=== PATIENT | female | born 1945 | race Caucasian/White ===

== ENCOUNTER 2016-09-22 12:48 | Inpatient (IN) | payer MEDICARE, BC ==
[~2016-09-22] VITALS: Ht 157.5 cm; Wt 85.9 kg
[~2016-09-22 12:48] MED LIST: ALBU8.5H3 IH; ATOR20TA PO; CALC1TAB PO; DESL5TAB PO; FLUT1DIS3 IH; MULT-496 PO; OMEP40CA5 PO; OXYB5TAB33 PO; PHEN37.599 PO; TIOT18CA IH; WARF6TAB PO
[2016-09-22] MEDS ORDERED: ALBUTEROL SULFATE 2.5 MG/3 ML NEBU. ONE (12:58)
[2016-09-22] MEDS ORDERED: IPRATRPIUM/ALBUTEROL 0.5/2.5MG 3 ML NEBU. ONE (13:07)
[2016-09-22] MEDS ORDERED: IPRATRPIUM/ALBUTEROL 0.5/2.5MG 3 ML NEBU. NEB ONE (13:15)
[2016-09-22 13:42] LABS: BASO # 0.1 x10^3/uL (0.0-0.2); BASO % 1 % (0-3); EOS # 0.1 x10^3/uL (0.0-0.7); EOS % 2 % (0-3); HEMATOCRIT 41.9 % (36.0-47.0); HEMOGLOBIN 13.4 g/dL (12.0-15.5); LYMPH # 1.2 x10^3/uL (1.0-4.8); LYMPH % 14 % (24-48); MEAN CORPUSCULAR HEMOGLOBIN 27 pg (25-35); MEAN CORPUSCULAR HGB CONC 32 g/dL (31-37); MEAN CORPUSCULAR VOLUME 84 fL (79-100); MONO # 0.6 x10^3/uL (0.0-1.1); MONO % 7 % (0-9); NEUT # 6.7 x10^3uL (1.8-7.7); NEUT % 76 % (31-73); PLATELET COUNT 248 x10^3/uL (140-400); RED BLOOD COUNT 5.01 x10^6/uL (3.50-5.40); RED CELL DISTRIBUTION WIDTH 17.3 % (11.5-14.5); WHITE BLOOD COUNT 8.8 x10^3/uL (4.0-11.0)
--- NOTE | 2016-09-22 13:54 | EKG ---
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
[2016-09-22 13:59] LABS: ALBUMIN 3.5 g/dL (3.4-5.0); ALBUMIN/GLOBULIN RATIO 0.8 (1.0-1.7); CALCIUM 8.7 mg/dL (8.5-10.1); GFR 54.8; POTASSIUM 3.7 mmol/L (3.5-5.1); TOTAL BILIRUBIN 0.5 mg/dL (0.2-1.0); TOTAL PROTEIN 7.8 g/dL (6.4-8.2)
[2016-09-22 14:04] LABS: INFLUENZA A PATIENT NEGATIVE (NEGATIVE); INFLUENZA B PATIENT NEGATIVE (NEGATIVE)
[2016-09-22] MEDS ORDERED: IOHEXOL 300 MG/ML 75 ML VIAL. IV ONE (14:30)
--- NOTE | 2016-09-22 14:58 | RAD ---
CTA of the chest with contrast, 09/22/2016: History: Shortness of breath, lung cancer Multidetector CT imaging was performed following an IV bolus injection of iodinated contrast material. Multiplanar reconstructions were produced including coronal MIP images. The central pulmonary arteries are well opacified and no filling defects are seen to suggest pulmonary emboli. There is moderate calcific plaquing of the thoracic aorta without evidence of aneurysm. Moderate scattered coronary artery calcifications are present. Multiple small mediastinal lymph nodes are seen without evidence of pathologic enlargement. The 3 cm mass seen in the left lower lobe on the previous exam has decreased in size currently measuring 2.5 cm in greatest diameter. There are several radiopacities within and adjacent to this density suggesting calcifications and/or fiducial markers. There is an 11 mm subpleural nodule in the medial aspect of the left lower lobe which appears to be unchanged. Several other tiny left lower lobe nodules also appear to be unchanged. There are several minimal groundglass type opacities in the left lower lobe are new. There are several patchy groundglass opacities in the right lung which appear to be unchanged. The largest of these lies in the right upper lobe and measures 2 cm. There is no evidence of pleural fluid. There appears to be hepatic steatosis. The adrenal glands are unremarkable. IMPRESSION: 1. No CT evidence of central pulmonary emboli. 2. Decrease in size of the left lower lobe pulmonary mass apparently representing a favorable response to therapy in this patient with a given history of lung cancer. 3. Several additional smaller peripheral nodules in the left lower lobe are unchanged. 4. New minimal patchy groundglass opacities in the left lower lobe. 5. Unchanged right upper lobe patchy groundglass opacities. 6. Coronary artery disease. 7. Hepatic steatosis PQRS Compliance Statement: One or more of the following individualized dose reduction techniques were utilized for this examination: 1. Automated exposure control 2. Adjustment of the mA and/or kV according to patient size 3. Use of iterative reconstruction technique
[2016-09-22] MEDS ORDERED: ALBUTEROL SULFATE 2.5 MG/3 ML NEBU. CONT NEB ONE (15:00)
[2016-09-22] MEDS ORDERED: LEVOFLOXACIN PER PHARMACY MC PRN (15:15)
[2016-09-22] MEDS ORDERED: VANCOMYCIN PER PHARMACY MC PRN (15:15)
[2016-09-22] MEDS ORDERED: methylPREDNISolone SOD SUCC PF 125 MG/2 ML VIAL. IV ONE (15:30)
[2016-09-22] MEDS ORDERED: VANCOMYCIN 2 GM in IV NORMAL SALINE 500ML 500 ML IV ONE (16:00)
[2016-09-22 17:23] VITALS: BP 116/59
--- NOTE | 2016-09-22 17:44 | ED.ADGEN ---
Past History Past Medical History: Cancer, COPD, Diabetes, GERD, High Cholesterol, Stroke Past Surgical History: Hysterectomy, Other Alcohol Use: None Drug Use: None Adult General Chief Complaint Chief Complaint Cough, shortness of breath HPI HPI Patient is a 71 year old female who presents with shortness of breath, cough, runny nose. It started as an upper respiratory infection but then she had progressive shortness of breath over the last few days. Symptoms started on Sunday, no known fevers. Patient has a history of lung cancer, treated with radiation therapy 3 months ago. She does not wear home oxygen. Upon arrival she had sats in the 70s. Patient is not currently on steroids or antibiotics. She denies any chest pain except with coughing. sHe is chronically on Coumadin for previous stroke that occurred during surgery. Review of Systems Review of Systems Constitutional: Denies fever or chills [] Eyes: Denies change in visual acuity, redness, or eye pain [] HENT: Denies sore throat [] Respiratory: Per history of present illness Cardiovascular: Denies chest pain GI: Denies abdominal pain, nausea, vomiting, bloody stools or diarrhea [] : Denies dysuria or hematuria [] Musculoskeletal: Denies back pain or joint pain [] Integument: Denies rash or skin lesions [] Neurologic: Denies headache, focal weakness or sensory changes [] Current Medications Current Medications Current Medications Medications (Trade) Dose Ordered Sig/Svitlana Start Time Stop Time Status Last Admin Dose Admin Albuterol Sulfate (Ventolin) 10 mg 1X ONCE 09/22/16 15:00 09/22/16 15:01 DC 09/22/16 14:50 10 MG Albuterol/ Ipratropium (Duoneb) 3 ml 1X ONCE 09/22/16 13:15 09/22/16 13:16 DC 09/22/16 13:09 3 ML Iohexol (Omnipaque 300 Mg/ml) 75 ml 1X ONCE 09/22/16 14:30 09/22/16 14:32 DC 09/22/16 14:29 75 ML Allergies Allergies Allergies Coded Allergies Type Severity Reaction Last Updated Verified Penicillins Allergy Unknown 10/06/14 Yes Sulfa (Sulfonamide Antibiotics) Allergy Unknown 10/06/14 Yes cefdinir Allergy Unknown 10/06/14 Yes Physical Exam Physical Exam Constitutional: Well developed, well nourished, moderate respiratory distress HENT: Normocephalic, atraumatic, bilateral external ears normal, oropharynx moist, no oral exudates, nose normal. [] Eyes: PERRLA, EOMI, conjunctiva normal, no discharge. [] Neck: Normal range of motion, no tenderness, supple, no stridor. [] Cardiovascular:Heart rate regular rhythm Lungs & Thorax: Poor air movement diffusely expiratory wheeze noted, no appreciable crackles Abdomen: Soft, nontender, nondistended Skin: Warm, dry, no erythema, no rash. [] Back: No tenderness, no CVA tenderness. [] Extremities: No tenderness, no cyanosis, no clubbing, ROM intact, trace bilateral lower extremity edema, negative Homans Neurologic: Alert and oriented X 3, normal motor function, normal sensory function, no focal deficits noted. [] Psychologic: Affect normal, judgement normal, mood normal. [] Current Patient Data Vital Signs Vital Signs Date Time Temp Pulse Resp B/P Pulse Ox O2 Delivery O2 Flow Rate FiO2 09/22/16 14:55 89 Nasal Cannula 2.0 09/22/16 14:45 92 22 143/71 09/22/16 12:49 99.8 Lab Results Laboratory Tests Test 09/22/16 13:17 09/22/16 13:29 White Blood Count 8.8x10^3/uL (4.0-11.0) Red Blood Count 5.01x10^6/uL (3.50-5.40) Hemoglobin 13.4g/dL (12.0-15.5) Hematocrit 41.9% (36.0-47.0) Mean Corpuscular Volume 84fL (79-100) Mean Corpuscular Hemoglobin 27pg (25-35) Mean Corpuscular Hemoglobin Concent 32g/dL (31-37) Red Cell Distribution Width 17.3% (11.5-14.5) H Platelet Count 248x10^3/uL (140-400) Neutrophils (%) (Auto) 76% (31-73) H Lymphocytes (%) (Auto) 14% (24-48) L Monocytes (%) (Auto) 7% (0-9) Eosinophils (%) (Auto) 2% (0-3) Basophils (%) (Auto) 1% (0-3) Neutrophils # (Auto) 6.7x10^3uL (1.8-7.7) Lymphocytes # (Auto) 1.2x10^3/uL (1.0-4.8) Monocytes # (Auto) 0.6x10^3/uL (0.0-1.1) Eosinophils # (Auto) 0.1x10^3/uL (0.0-0.7) Basophils # (Auto) 0.1x10^3/uL (0.0-0.2) Prothrombin Time 11.6SEC (9.4-11.4) H Prothrombin Time INR 1.1 (0.9-1.1) PTT 25SEC (23-33) Sodium Level 139mmol/L (136-145) Potassium Level 3.7mmol/L (3.5-5.1) Chloride Level 102mmol/L (98-107) Carbon Dioxide Level 30mmol/L (21-32) Anion Gap 7 (6-14) Blood Urea Nitrogen 21mg/dL (7-20) H Creatinine 1.0mg/dL (0.6-1.0) Estimated GFR (Cockcroft-Gault) 54.8 BUN/Creatinine Ratio 21 (6-20) H Glucose Level 137mg/dL (70-99) H Lactic Acid Level 1.2mmol/L (0.4-2.0) Calcium Level 8.7mg/dL (8.5-10.1) Magnesium Level 2.0mg/dL (1.8-2.4) Total Bilirubin 0.5mg/dL (0.2-1.0) Aspartate Amino Transferase (AST) 19U/L (15-37) Alanine Aminotransferase (ALT) 26U/L (14-59) Alkaline Phosphatase 52U/L (46-116) Creatine Kinase 145U/L (26-192) Creatine Kinase MB (Mass) 1.6ng/mL (0.0-3.6) Creatine Kinase MB Relative Index 1.1% (0-4) Troponin I Quantitative < 0.017ng/mL (0-0.055) SU-Cbf-L-Type Natriuretic Peptide 932pg/mL (0-124) H Total Protein 7.8g/dL (6.4-8.2) Albumin 3.5g/dL (3.4-5.0) Albumin/Globulin Ratio 0.8 (1.0-1.7) L Influenza Type A (Rapid) Negative (NEGATIVE) Influenza Type B (Rapid) Negative (NEGATIVE) EKG EKG Reviewed by me [] Radiology/Procedures Radiology/Procedures Radiographs reviewed by me [] Course & Med Decision Making Course & Med Decision Making Pertinent Labs and Imaging studies reviewed. (See chart for details) Chest x-ray performed, patient given DuoNeb and albuterol breathing treatments. Slight improvement but she remains tachypneic. CT angiography ordered, patient given IV Solu-Medrol. There is signs of possible new infection, along with cough , recent multiple hospital visits, patient was treated with aztreonam, make mycin and Levaquin. Dr. Breaux accepted this patient. She was placed on BiPAP here in the ED. Final Impression Final Impression Acute respiratory failure COPD with excaerbation Problems: Dragon Disclaimer Dragon Disclaimer This electronic medical record was generated, in whole or in part, using a voice recognition dictation system. MATTIE DEL VALLE MD Sep 22, 2016 17:44
[2016-09-22] MEDS: AZTREONAM 2 GM in IV NORMAL SALINE 100ML 100 ML IV SCH (18:58)
[2016-09-22] MEDS ORDERED: IV NORMAL SALINE 100ML 100 ML ONE (19:47)
[2016-09-22 19:54] VITALS: BP 108/62
[2016-09-22] MEDS ORDERED: SIMV40TA3 PO (20:18)
[2016-09-22] MEDS ORDERED: ESCI20TA PO (20:19)
[2016-09-22] MEDS ORDERED: PIOG30TA20 PO (20:20)
[2016-09-22] MEDS ORDERED: FLUT1DIS5 IH (20:20)
[2016-09-22] MEDS ORDERED: AZIT250T PO (20:20)
[2016-09-22] MEDS ORDERED: CYAN10005 PO (20:21)
[2016-09-22] MEDS ORDERED: ALBUTEROL SULFATE 8GM INHALER. IH SCH (20:30)
[2016-09-22] MEDS ORDERED: ALBUTEROL SULFATE 2.5 MG/3 ML NEBU. NEB PRN (20:45)
[2016-09-22] MEDS ORDERED: NON FORMULARY ITEM (Fluticasone/Salmeterol (Advair 500-50 Diskus) 1 EACH) IH SCH (21:00)
[2016-09-22] MEDS: SIMVASTATIN 40 MG TABLET. PO SCH (21:04)
[2016-09-22] MEDS: ESCITALOPRAM 20 MG TABLET. PO SCH (21:04)
[2016-09-22] MEDS: BUDESONIDE 0.5 MG/2 ML NEBU NEB SCH (21:16)
[2016-09-22] MEDS: ALBUTEROL SULFATE 2.5 MG/3 ML NEBU. NEB SCH (21:16)
[2016-09-23] MEDS: AZTREONAM 2 GM in IV NORMAL SALINE 100ML 100 ML IV SCH ×5 (00:10→23:50)
[2016-09-23 05:08] VITALS: BP 106/61
[2016-09-23] MEDS: IPRATRPIUM/ALBUTEROL 0.5/2.5MG 3 ML NEBU. NEB SCH ×5 (05:32→20:39)
[2016-09-23] MEDS: ALBUTEROL SULFATE 2.5 MG/3 ML NEBU. NEB SCH ×4 (08:00→19:46)
[2016-09-23] MEDS: PIOGLITAZONE 15 MG TABLET. PO SCH (08:35)
[2016-09-23] MEDS: CYANOCOBALAMIN (VITAMIN B-12) 1,000 MCG TABLET. PO SCH (08:35)
[2016-09-23] MEDS: PANTOPRAZOLE 40 MG TABLET. PO SCH (08:36)
[2016-09-23] MEDS ORDERED: WARFARIN 6 MG TABLET. PO SCH ×2 (09:00→16:00)
[2016-09-23] MEDS ORDERED: NON FORMULARY ITEM (Tiotropium Bromide (Spiriva) 1 CAP) IH SCH (09:00)
[2016-09-23] MEDS: BUDESONIDE 0.5 MG/2 ML NEBU NEB SCH ×3 (11:25→20:39)
[2016-09-23 11:37] VITALS: BP 137/80
[2016-09-23] MEDS ORDERED: DEXTROSE 50% 25 GM / 50ML DISP.SYRIN. IV PRN (15:30)
[2016-09-23] MEDS ORDERED: methylPREDNISolone SOD SUCC PF 125 MG/2 ML VIAL. IV ONE (15:45)
[2016-09-23 15:56] VITALS: BP 141/63
--- NOTE | 2016-09-23 15:57 | HP ---
ADMIT DATE: 09/23/2016 HISTORY OF PRESENT ILLNESS: The patient is a 71-year-old female patient with a past medical history significant for lung cancer, treated with CyberKnife last year at [facility] and followed by Dr. Rubio, her housecleaner at [facility], who apparently came to the Emergency Room yesterday complaining of shortness of breath, cough with runny nose. It started upper respiratory tract infection; however, she had progressive shortness of breath over the last few days. Her symptoms started on Sunday and had no fever. She apparently is known to have recurrence of her left lower lobe lung cancer, treated recently about 3 months ago. She is not on any oxygen at home. When arrival to the Emergency Room, her oxygen saturation was only 70% on room air. She was not on any steroids or antibiotics. By the time she arrived, she denied any chest pain, fever, chills or rigor. She was extensively evaluated in the Emergency Room as she was markedly hypoxic and very short of breath. She did have CT angio of the chest, which showed that she no CT evidence of central pulmonary emboli, decrease in size of the left lower lobe pulmonary mass, apparently representing favorable response to therapy in this patient with a given history of lung cancer. She has several additional smaller peripheral nodules in the left lower lobe are unchanged. New or minimal patchy ground glass opacity in the left lower lobe, unchanged right upper lobe patchy ground glass opacities. She has also hepatic steatosis and coronary artery calcification. She was in fact admitted and was started on IV antibiotic in the form of vancomycin, aztreonam as well as levofloxacin and was continued on all her medications. PAST MEDICAL HISTORY: Significant for chronic obstructive pulmonary disease, lung cancer diagnosed 10 years ago, treated with wedge resection, apparently the lung cancer has recurred and was treated with CyberKnife. She is known to have type 2 diabetes mellitus, hypertension and hyperlipidemia. 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 PAST SURGICAL HISTORY: Significant for tonsillectomy, bilateral cataract extraction, total abdominal hysterectomy and bilateral salpingo-oophorectomy. She has wedge resection in the left lower lobe. ALLERGIES: She is allergic to SULFA, PENICILLIN and CEFDINIR. MEDICATIONS: She is currently on the following medications: She is on albuterol sulfate for ProAir 2 puffs every 4 hours as needed, cyanocobalamin for vitamin B12 1000 mcg once a day, escitalopram oxalate 20 mg once a day, Advair Diskus 500/50 one inhalation twice a day, omeprazole 40 mg once a day, pioglitazone 30 mg once a day, simvastatin 40 mg at bedtime, tiotropium bromide for Spiriva 1 inhalation once a day and warfarin for Coumadin 6 mg once a day. FAMILY HISTORY: She has one sister with younger and has cerebral aneurysm. Father at age of 63, bilateral lung cancer. He is known to be a smoker. Mother is still alive at age 93 and currently lives in assisted living facility. SOCIAL HISTORY: She is , has 2 daughters. Quit smoking about 20 years ago. She smoked for years, does not drink alcohol or use any recreational drugs. 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 REVIEW OF SYSTEMS: The patient had bilateral cataract extractions, but denied any glaucoma or macular degeneration. Denied any earache, tinnitus or sensorineural deafness. Denied any nosebleeds, stuffy nose or postnasal drip. Denied any sore throat, sore tongue, toothache, hoarseness of voice or difficulty swallowing. Denied any nausea, vomiting, but did complain of diarrhea. Denied any hematemesis, melena or hematochezia. Denied any dysuria, frequency or hematuria. Denied any chest pain, but did complain of shortness of breath, cough with mostly scanty whitish sputum. Denied any chills, rigors or fever. Denied any dizziness, lightheadedness or vertigo. PHYSICAL EXAMINATION: GENERAL: On arrival to the Emergency Room, she was clearly tachypneic. VITAL SIGNS: Her heart rate was 90, blood pressure was 143/71, her temperature was 99.8, respiratory rate was 28 and oxygen saturation was only 79% on 2 liters of oxygen by nasal cannula. HEAD, EYES, EARS, NOSE AND THROAT: Showed normocephalic, atraumatic. NECK: Supple. HEART: Showed normal first and second heart sounds with no gallop, rub or murmur. CHEST: Showed central trachea, equally reduced expansion, reduced air entry, vesicular sounds with bilateral scattered rhonchi. No crepitation. ABDOMEN: Distended, soft, nontender: NEUROLOGIC: She is awake, alert, responding appropriately. Cranial nerves intact. EXTREMITIES: She moves extremities without difficulty. She ambulates without assistance or assistive devices. LABORATORY DATA: On arrival in the Emergency Room, she had lab work done, which showed a serum sodium 139, potassium 3.7, chloride 102, bicarbonate 30, anion gap of 7, BUN 21, creatinine 1, estimated GFR was 55 mL per minute. Her glucose 137, calcium was 8.7, magnesium 2. Total bilirubin, AST, ALT, alkaline phosphatase were normal. Her beta natriuretic peptide was 932. Total protein was 7.8, albumin 3.5. Her white cell count was 8800, hemoglobin 13.4, hematocrit 41.9, MCV 84 and platelet count 248,000. Her prothrombin time was 11.6, INR 1.1, aPTT was 24. Serology was negative for influenza A and B. ASSESSMENT AND PLAN: In the Emergency Room, she underwent CT angio of the chest, which showed that she has no evidence of central pulmonary emboli, decrease in size of the lower lobe pulmonary mass, apparently representing a favorable response to therapy. She has bilateral ground glass opacity in the left lower lobe as well as the right upper lobe. She was admitted and was treated with COPD exacerbation and what seemed to be healthcare-associated pneumonia. She was started on vancomycin, aztreonam and levofloxacin. We will follow her labs closely and decide on further management accordingly. NOVA CULVER MD DR: HEMAL/martha JOB#: [id number] / [id number]
[2016-09-23] MEDS ORDERED: VANCOMYCIN 1.25 GM in IV NORMAL SALINE 250ML 250 ML IV SCH (16:00)
[2016-09-23] MEDS: WARFARIN 10 MG TABLET. PO SCH (17:15)
[2016-09-23] MEDS: INSULIN ASPART 300 UNITS/3 ML INSULN.PEN SQ SCH (17:19)
--- NOTE | 2016-09-23 18:38 | ACF ---
Admission Criteria Forms COPD Clinical Indications for Admission to Inpatient Care (Place 'X' for any and all applicable criteria): Admission is indicated for ANY ONE of the following (1)(2)(3): [x]I. Acute exacerbation by high-risk comorbidity (e.g., pneumonia, dysrhythmia, heart failure, pleural effusion, pneumothorax) or severe underlying COPD (e.g., steroid dependent) [ ]II. Inpatient admission required rather than observation care (see Chronic Obstructive Pulmonary Disease: Observation Care) because of ANY ONE of the following: [ ]a) New or pre-existing signs or symptoms of COPD (eg, dyspnea or Tachypnea at rest or with minimal activity) that persist despite outpatient and observation care treatment [ ]b) New-onset hypoxemia (room air SaO2 less than 90%, PO2 less than 60 mm Hg (8.0 kPa)) that persists despite outpatient and observation care treatment [ ]c) Worsening of pre-existing hypoxemia (eg, new or increased requirement for supplemental oxygen to maintain oxygenation at baseline level) that persists despite outpatient and observation care treatment, with oxygen treatment needs performable only in acute inpatient setting [ ]d) Hypercarbia (PCO2 greater than 40 mm Hg (5.3 kPa))-induced respiratory acidosis (pH less than 7.35) that persists despite outpatient and observation care treatment [ ]e) Supplemental oxygen or respiratory treatments for over 24 hours that are performable only in acute inpatient setting [ ]f) Chest tube placement with active evacuation (e.g., suction, drainage) (5) [ ]g) Other condition, treatment or monitoring requiring inpatient admission [ ]III. Planned invasive surgical or diagnostic procedures requiring acute- care hospitalization [ ]IV. Acute respiratory failure (e.g., uncompensated hypercarbia, severe hypoxemia) [ ]V. Severe comorbid condition (e.g., severe steroid myopathy, acute vertebral fracture) that has acutely worsened pulmonary function [ ]. Confusion state, lethargy, obtundation, stupor or coma Extended stay beyond goal length of stay may be needed for (31)(32): [ ]a ) Respiratory Failure. [ ]b) Severe or persisting hypoxemia or hypercarbia [ ]c) Severe or persistent dyspnea [ ]d) Comorbidities (e.g. chronic heart failure, atrial fibrillation with rapid response, pneumonia) [ ]e) Malnutrition The original [facility] content created by [employer] has been revised. The portions of the content which have been revised are identified through the use of italic text or in bold, and [facility] has neither reviewed nor approved the modified material. All other unmodified content is copyright [facility]. Please see references footnoted in the original [facility] edition 2016 Admission Criteria Met?: Yes GAVINO LARRY Sep 23, 2016 18:38
[2016-09-23 19:08] VITALS: BP 131/63
[2016-09-23] MEDS: MELATONIN 3 MG TABLET PO PRN (21:27)
[2016-09-23] MEDS: SIMVASTATIN 40 MG TABLET. PO SCH (21:27)
[2016-09-23] MEDS: MONTELUKAST 10 MG TABLET. PO SCH (21:27)
[2016-09-23] MEDS: ESCITALOPRAM 20 MG TABLET. PO SCH (21:27)
[2016-09-23] MEDS: methylPREDNISolone SOD SUCC PF 40 MG/ML VIAL. IV SCH (21:28)
[2016-09-23] MEDS: GUAIFENESIN ER 600 MG TABLET.ER PO SCH (21:28)
[2016-09-23 22:11] LABS: C DIFF BY PCR Negative (Negative)
[2016-09-24 00:05] VITALS: BP 127/78
--- NOTE | 2016-09-24 01:33 | PN ---
DATE: 09/23/2016 SUBJECTIVE: The patient was admitted yesterday with what seemed to be a healthcare-associated pneumonia as well as COPD exacerbation. She was started on IV antibiotic. Continued with all other medication and she was started on oxygen as when she came her oxygen saturation was only 70%. Initially, she was on 2 liters of oxygen that was increased to 4 liters to maintain her oxygen saturation more than 90%. PHYSICAL EXAMINATION: GENERAL: When I saw her this afternoon, she was resting slightly propped up in bed, in no apparent respiratory distress. She was slightly pale, but no jaundice, cyanosis, or thyromegaly. No jugular venous distension. No limb edema. VITAL SIGNS: Her heart rate was 86, blood pressure was 137/80, temperature was 97.8, respiratory rate was 16 and oxygen saturation was 94% on 4 liters of oxygen by nasal cannula. HEAD, EYES, EARS, NOSE AND THROAT: Showed normocephalic, atraumatic. NECK: Supple. HEART: Showed normal first and second heart sounds with no gallop, rub or murmur. CHEST: Shows central trachea, equally reduced expansion, reduced air entry, vesicular sounds. Has scattered bronchi diffusely, but no crepitation. ABDOMEN: Distended, soft, nontender. NEUROLOGIC: She was awake, alert, responding appropriately. Cranial nerves intact. She moves extremities without difficulty. We attempted to check her oxygen as she expressed a desire to go home and without oxygen her oxygen saturation on walking only few feet dropped down to below 60. I convinced the patient that it is in her best interest to stay and we will continue with IV antibiotics. I will add steroids and Singulair and perhaps some Mucinex. We will repeat all her lab works and hopefully on Sunday we will do 6-minute walk and if she qualifies, we will arrange for her to have home oxygen. NOVA CULVER MD DR: HEMAL/martha JOB#: [id number] / [id number]
[2016-09-24] MEDS: methylPREDNISolone SOD SUCC PF 40 MG/ML VIAL. IV SCH ×3 (05:12→20:25)
[2016-09-24] MEDS: AZTREONAM 2 GM in IV NORMAL SALINE 100ML 100 ML IV SCH ×4 (05:12→23:45)
[2016-09-24] MEDS: IPRATRPIUM/ALBUTEROL 0.5/2.5MG 3 ML NEBU. NEB SCH ×4 (05:14→20:21)
[2016-09-24 06:16] LABS: BASO % 0 % (0-3); EOS % 0 % (0-3); HEMATOCRIT 38.5 % (36.0-47.0); HEMOGLOBIN 11.9 g/dL (12.0-15.5); LYMPH # 0.4 x10^3/uL (1.0-4.8); LYMPH % 4 % (24-48); MEAN CORPUSCULAR HEMOGLOBIN 26 pg (25-35); MEAN CORPUSCULAR HGB CONC 31 g/dL (31-37); MEAN CORPUSCULAR VOLUME 84 fL (79-100); MONO # 0.2 x10^3/uL (0.0-1.1); MONO % 2 % (0-9); NEUT # 10.7 x10^3uL (1.8-7.7); NEUT % 94 % (31-73); PLATELET COUNT 264 x10^3/uL (140-400); RED BLOOD COUNT 4.56 x10^6/uL (3.50-5.40); RED CELL DISTRIBUTION WIDTH 17.3 % (11.5-14.5); WHITE BLOOD COUNT 11.4 x10^3/uL (4.0-11.0)
[2016-09-24 06:20] VITALS: BP 134/75
[2016-09-24 06:29] LABS: ALBUMIN 2.9 g/dL (3.4-5.0); ALBUMIN/GLOBULIN RATIO 0.7 (1.0-1.7); CALCIUM 8.9 mg/dL (8.5-10.1); CREATININE 1.1 mg/dL (0.6-1.0); GFR 49.1; TOTAL BILIRUBIN 0.3 mg/dL (0.2-1.0)
[2016-09-24 06:40] LABS: % BANDS 1 % (0-9); % LYMPHS 6 % (24-48); % SEGS 93 % (35-66); PLT ESTIMATE ADEQUATE (ADEQUATE)
[2016-09-24 06:41] LABS: OVALOCYTES OCC
[2016-09-24 06:42] LABS: POLYCHROMASIA MOD
[2016-09-24 06:45] LABS: ANISOCYTOSIS SLIGHT
[2016-09-24] MEDS: PANTOPRAZOLE 40 MG TABLET. PO SCH (07:40)
[2016-09-24] MEDS: INSULIN ASPART 300 UNITS/3 ML INSULN.PEN SQ SCH ×4 (07:54→16:38)
[2016-09-24] MEDS: ALBUTEROL SULFATE 2.5 MG/3 ML NEBU. NEB SCH ×4 (08:00→20:00)
[2016-09-24] MEDS: GUAIFENESIN ER 600 MG TABLET.ER PO SCH ×2 (08:37→20:25)
[2016-09-24] MEDS: PIOGLITAZONE 15 MG TABLET. PO SCH (08:37)
[2016-09-24] MEDS: CYANOCOBALAMIN (VITAMIN B-12) 1,000 MCG TABLET. PO SCH (08:37)
[2016-09-24] MEDS: BUDESONIDE 0.5 MG/2 ML NEBU NEB SCH ×2 (11:04→20:22)
[2016-09-24 11:19] VITALS: BP 135/79
[2016-09-24] MEDS ORDERED: IV NORMAL SALINE 100ML 100 ML ONE (12:59)
[2016-09-24] MEDS: IV NORMAL SALINE 1,000ML 1,000 ML IV SCH (13:30)
[2016-09-24 15:52] VITALS: BP 126/61
[2016-09-24] MEDS: WARFARIN 10 MG TABLET. PO SCH (15:52)
[2016-09-24 19:41] VITALS: BP 158/73
[2016-09-24] MEDS: SIMVASTATIN 40 MG TABLET. PO SCH (20:25)
[2016-09-24] MEDS: ESCITALOPRAM 20 MG TABLET. PO SCH (20:25)
[2016-09-24] MEDS: MONTELUKAST 10 MG TABLET. PO SCH (20:25)
[2016-09-24] MEDS: MELATONIN 3 MG TABLET PO PRN (20:50)
[2016-09-24 22:47] VITALS: BP 147/70
--- NOTE | 2016-09-24 22:49 | PN ---
DATE: 09/24/2016 SUBJECTIVE: The patient is sitting comfortably in her chair stating that she is exhausted, but feeling much better than yesterday. She continued to be desaturated, given 2 liters of oxygen and she needs 3 liters at rest to maintain her oxygen more than 90. PHYSICAL EXAMINATION: GENERAL: When I examined her, she looked well and was clearly in no apparent respiratory distress, pale, but no jaundice, cyanosis, or thyromegaly. No jugular venous distention. No limb edema. VITAL SIGNS: Her heart rate was 78, blood pressure 135/79, temperature was 98.1, respiratory rate was 20, and oxygen saturation was 95% on 3 liters of oxygen. HEAD, EYES, EARS, NOSE AND THROAT: Showed normocephalic, atraumatic. NECK: Supple. HEART: Showed normal first and second heart sounds with no gallop, rub or murmur. CHEST: Clear to auscultation. No crepitation or rhonchi. ABDOMEN: Distended, soft, nontender. No guarding or rigidity. No organomegaly. Hernial orifices intact. Bowel sounds normal. NEUROLOGIC: She was awake, alert, responding appropriately. All her cranial nerves intact. She moves extremities without difficulty, although she desaturate very quickly on minimal exertion. Her intake over the last 24 hours was 1430, output was 240. LABORATORY DATA: As of this morning showed a white cell count of 11,400, hemoglobin 11.9, hematocrit 38, MCV was 84, and platelet count 264,000 with normal manual differential. Her serum sodium was 140, potassium 5, chloride 104, bicarbonate 27, anion gap of 9, BUN 30, creatinine 1.1, estimated GFR was 49 mL per minute. Her glucose was 263, calcium was 8.9. Total bilirubin, AST, ALT, alkaline phosphatase normal. Total protein was 7. Albumin was 2.9. Her prothrombin time and INR still subtherapeutic at 11.5 and INR 1.1. ASSESSMENT: 1. Acute hypoxic respiratory failure. 2. Chronic obstructive pulmonary disease exacerbation. 3. Healthcare-associated pneumonia. 4. Recurrence of left lower lobe lung cancer treated with a CyberKnife. 5. Other medical problems include type 2 diabetes, hypertension, and hyperlipidemia. She apparently had right-sided CVA with left-sided hemiplegia with minimal residual neurological deficits. PLAN: My plan is to continue with IV antibiotic and continue with Solu-Medrol and bronchodilator. Repeat her lab works tomorrow. She probably needs 6-minute walk tomorrow as she is scheduled to see her radiation oncologist and Dr. Rubio, the manager advanced at [facility]. NOVA CULVER MD DR: HEMAL/martha JOB#: [id number] / [id number]
[2016-09-25] MEDS: IV NORMAL SALINE 1,000ML 1,000 ML IV SCH (02:42)
[2016-09-25 05:12] VITALS: BP 145/86
[2016-09-25] MEDS: methylPREDNISolone SOD SUCC PF 40 MG/ML VIAL. IV SCH ×2 (05:54→21:26)
[2016-09-25] MEDS: AZTREONAM 2 GM in IV NORMAL SALINE 100ML 100 ML IV SCH (05:54)
[2016-09-25] MEDS: IPRATRPIUM/ALBUTEROL 0.5/2.5MG 3 ML NEBU. NEB SCH ×2 (05:59→19:58)
[2016-09-25 06:29] LABS: BASO % 0 % (0-3); EOS % 0 % (0-3); HEMATOCRIT 37.2 % (36.0-47.0); HEMOGLOBIN 11.6 g/dL (12.0-15.5); LYMPH # 0.3 x10^3/uL (1.0-4.8); LYMPH % 3 % (24-48); MEAN CORPUSCULAR HEMOGLOBIN 26 pg (25-35); MEAN CORPUSCULAR HGB CONC 31 g/dL (31-37); MEAN CORPUSCULAR VOLUME 85 fL (79-100); MONO # 0.3 x10^3/uL (0.0-1.1); MONO % 3 % (0-9); NEUT # 10.6 x10^3uL (1.8-7.7); NEUT % 94 % (31-73); PLATELET COUNT 283 x10^3/uL (140-400); RED BLOOD COUNT 4.39 x10^6/uL (3.50-5.40); RED CELL DISTRIBUTION WIDTH 17.1 % (11.5-14.5); WHITE BLOOD COUNT 11.3 x10^3/uL (4.0-11.0)
[2016-09-25 06:49] LABS: ALBUMIN 2.8 g/dL (3.4-5.0); ALBUMIN/GLOBULIN RATIO 0.7 (1.0-1.7); CALCIUM 8.8 mg/dL (8.5-10.1); GFR 54.8; POTASSIUM 4.7 mmol/L (3.5-5.1); TOTAL BILIRUBIN 0.2 mg/dL (0.2-1.0); TOTAL PROTEIN 6.7 g/dL (6.4-8.2)
[2016-09-25] MEDS: PANTOPRAZOLE 40 MG TABLET. PO SCH (07:39)
[2016-09-25] MEDS: INSULIN ASPART 300 UNITS/3 ML INSULN.PEN SQ SCH ×3 (07:41→17:31)
[2016-09-25] MEDS: GUAIFENESIN ER 600 MG TABLET.ER PO SCH ×2 (08:38→21:26)
[2016-09-25] MEDS: CYANOCOBALAMIN (VITAMIN B-12) 1,000 MCG TABLET. PO SCH (08:38)
[2016-09-25] MEDS: PIOGLITAZONE 15 MG TABLET. PO SCH (08:38)
[2016-09-25 11:33] VITALS: BP 146/79
[2016-09-25] MEDS: ALBUTEROL SULFATE 2.5 MG/3 ML NEBU. NEB SCH ×4 (12:00→20:00)
[2016-09-25] MEDS: BUDESONIDE 0.5 MG/2 ML NEBU NEB SCH ×2 (12:05→19:58)
[2016-09-25] MEDS ORDERED: WARFARIN 5 MG TABLET. PO ONE (16:00)
[2016-09-25 16:01] VITALS: BP 123/85
[2016-09-25] MEDS ORDERED: LEVOFLOXACIN 750 MG TABLET PO SCH (17:00)
[2016-09-25 20:02] VITALS: BP 136/62
--- NOTE | 2016-09-25 20:23 | PN ---
DATE: 09/25/2016 CURRENT PROBLEMS: 1. Acute hypoxic respiratory failure. 2. COPD exacerbation. 3. Healthcare-associated pneumonia. 4. Recurrence of left lower lobe cancer. 5. Type 2 diabetes. 6. Hypertension. 7. Hyperglycemia. 8. History of right-sided CVA. 9. Leukocytosis from steroids. 10. Hyperglycemia from steroids. 11. Mild protein malnutrition. 12. Chronic kidney disease, stage 2. 13. Chronic anticoagulation. SUBJECTIVE: A 71-year-old female admitted with acute hypoxic respiratory failure and pneumonia. She is doing much better. She is requiring oxygen and failed her oxygen test this morning, just by taking off her oxygen her sats dropped down to the 80s. She is not on oxygen at home, but will require that at least initially. She does have appointments with specialty physician this week to follow up on her lung cancer. I anticipate she will be able to go home probably tomorrow. OBJECTIVE: VITAL SIGNS: Blood pressure 146/79, pulse 79, respirations 22, pulse ox is 93% on 1.5 liters. GENERAL: She is resting comfortably at rest, able to sit up without assistance. Color is slightly pale. HEENT: Her eyes were clear. Nose was patent. Her tongue was moist. NECK: Supple. LUNGS: With crackles in the bases. CARDIOVASCULAR: Regular rhythm and rate. ABDOMEN: Soft, nontender. EXTREMITIES: Without edema. LABORATORY DATA: Reviewed. BUN is 29, creatinine 1.0. Glucoses are in the 200s to low 300s. She has an elevated ____. Her INR was 2.5 up from 1.1 with her Coumadin was increased from 6 to 10. We will defer to pharmacy for that. We will adjust her Coumadin accordingly. PLAN: Decrease steroids to switch her to p.o. Levaquin now. Arrangements are being made for home oxygen. MELISSA TIRADO DO DR: ANIYAH/martha JOB#: [id number] / [id number]
[2016-09-25] MEDS: MELATONIN 3 MG TABLET PO PRN (21:26)
[2016-09-25] MEDS: MONTELUKAST 10 MG TABLET. PO SCH (21:26)
[2016-09-25] MEDS: SIMVASTATIN 40 MG TABLET. PO SCH (21:26)
[2016-09-25] MEDS: ESCITALOPRAM 20 MG TABLET. PO SCH (21:26)
[2016-09-26 04:52] VITALS: BP 134/76
[2016-09-26] MEDS: IPRATRPIUM/ALBUTEROL 0.5/2.5MG 3 ML NEBU. NEB SCH ×2 (05:16→11:13)
[2016-09-26 07:46] LABS: BASO % 0 % (0-3); EOS % 0 % (0-3); HEMATOCRIT 38.4 % (36.0-47.0); HEMOGLOBIN 11.8 g/dL (12.0-15.5); LYMPH # 0.3 x10^3/uL (1.0-4.8); LYMPH % 3 % (24-48); MEAN CORPUSCULAR HEMOGLOBIN 26 pg (25-35); MEAN CORPUSCULAR HGB CONC 31 g/dL (31-37); MEAN CORPUSCULAR VOLUME 84 fL (79-100); MONO # 0.4 x10^3/uL (0.0-1.1); MONO % 4 % (0-9); NEUT # 10.3 x10^3uL (1.8-7.7); NEUT % 93 % (31-73); PLATELET COUNT 287 x10^3/uL (140-400); RED BLOOD COUNT 4.56 x10^6/uL (3.50-5.40); RED CELL DISTRIBUTION WIDTH 16.8 % (11.5-14.5)
[2016-09-26] MEDS: ALBUTEROL SULFATE 2.5 MG/3 ML NEBU. NEB SCH ×2 (08:00→12:00)
[2016-09-26 08:02] LABS: ALBUMIN 2.7 g/dL (3.4-5.0); ALBUMIN/GLOBULIN RATIO 0.7 (1.0-1.7); CALCIUM 8.6 mg/dL (8.5-10.1); CREATININE 0.9 mg/dL (0.6-1.0); GFR 61.9; POTASSIUM 4.2 mmol/L (3.5-5.1); TOTAL BILIRUBIN 0.2 mg/dL (0.2-1.0); TOTAL PROTEIN 6.5 g/dL (6.4-8.2)
[2016-09-26] MEDS: PANTOPRAZOLE 40 MG TABLET. PO SCH (08:02)
[2016-09-26] MEDS: INSULIN ASPART 300 UNITS/3 ML INSULN.PEN SQ SCH (08:06)
[2016-09-26] MEDS: PIOGLITAZONE 15 MG TABLET. PO SCH (08:41)
[2016-09-26] MEDS: methylPREDNISolone SOD SUCC PF 40 MG/ML VIAL. IV SCH (08:41)
[2016-09-26] MEDS: GUAIFENESIN ER 600 MG TABLET.ER PO SCH (08:41)
[2016-09-26] MEDS: CYANOCOBALAMIN (VITAMIN B-12) 1,000 MCG TABLET. PO SCH (08:41)
[2016-09-26] MEDS ORDERED: DOXY100C2 PO (10:03)
[2016-09-26] MEDS ORDERED: GUAI600T38 PO (10:03)
[2016-09-26] MEDS ORDERED: MONT10TA9 PO (10:03)
[2016-09-26] MEDS ORDERED: ALBU2.5V5 NEB (10:03)
[2016-09-26] MEDS ORDERED: PRED20TA PO (10:03)
[2016-09-26] MEDS: BUDESONIDE 0.5 MG/2 ML NEBU NEB SCH (11:13)
--- NOTE | 2016-09-26 12:33 | DS ---
DATE OF DISCHARGE: 09/26/2016 DISCHARGE DIAGNOSES: 1. Acute hypoxic respiratory failure. 2. Chronic obstructive pulmonary disease exacerbation. 3. Healthcare-associated pneumonia. 4. Recurrence of left lower lobe cancer. 5. Type 2 diabetes. 6. Hypertension. 7. Hyperglycemia secondary to steroids. 8. History of right-sided cerebrovascular accident. 9. Leukocytosis from steroids. 10. Mild protein malnutrition. 11. Chronic kidney disease, stage II. 12. Subtherapeutic then supratherapeutic INR. HOSPITAL COURSE: This is a 71-year-old female initially admitted by Dr. Merrill Leon for shortness of breath, cough, upper respiratory tract infection. She was found to be hypoxic with healthcare-associated pneumonia and was treated with steroids, breathing treatments and antibiotics. She improved steadily over the course of her hospitalization. Her INR was subtherapeutic and then supratherapeutic and her Coumadin will be adjusted accordingly. PHYSICAL EXAMINATION: VITAL SIGNS: On the day of discharge, blood pressure 134/76, pulse 93, temperature 97.9, pulse ox on 3 liters. GENERAL: Color is much better today. LUNGS: Clear in all wren. CARDIOVASCULAR: Regular rhythm and rate. EXTREMITIES: Without edema. LABORATORY DATA: Her INR today is 3.7. DISPOSITION: Home with home health. DISCHARGE INSTRUCTIONS: She will follow up with [facility] with SARAH BETH Wise. She will be on prednisone taper. She will go home on doxycycline and needs to establish care with another physician as Dr. Lynn is leaving. Typewritten instructions also given. TIME SPENT ON DISCHARGE: 20 minutes. MELISSA TIRADO DO DR: ANIYAH/martha JOB#: [id number] / [id number]
== END 2016-09-26 12:11 | disposition home or self-care (01) | DRG 193 ==
LOC: ER 12:48 → 1 SOUTH 15:13
PROVIDERS: ADMIT Internal Medicine; ATTEND Internal Medicine
PROC: 5A09357 Assistance with Respiratory Ventilation, Less than 24 Consecutive Hours, Continuous Positive Airway Pressure (ICD-10-PCS; principal; 2016-09-22)
DX: J18.9 Pneumonia, unspecified organism (principal); J96.01 Acute respiratory failure with hypoxia; J44.0 Chronic obstructive pulmonary disease with (acute) lower respiratory infection; E44.1 Mild protein-calorie malnutrition; J44.1 Chronic obstructive pulmonary disease with (acute) exacerbation; I69.354 Hemiplegia and hemiparesis following cerebral infarction affecting left non-dominant side; C34.90 Malignant neoplasm of unspecified part of unspecified bronchus or lung; E78.00 Pure hypercholesterolemia, unspecified; E78.5 Hyperlipidemia, unspecified; I12.9 Hypertensive chronic kidney disease with stage 1 through stage 4 chronic kidney disease, or unspecified chronic kidney disease; I25.10 Atherosclerotic heart disease of native coronary artery without angina pectoris; K21.9 Gastro-esophageal reflux disease without esophagitis; K76.0 Fatty (change of) liver, not elsewhere classified; N18.2 Chronic kidney disease, stage 2 (mild); E11.22 Type 2 diabetes mellitus with diabetic chronic kidney disease; E11.65 Type 2 diabetes mellitus with hyperglycemia; R79.1 Abnormal coagulation profile; Y95 Nosocomial condition; Z79.01 Long term (current) use of anticoagulants; Z80.1 Family history of malignant neoplasm of trachea, bronchus and lung; Z87.891 Personal history of nicotine dependence; Z90.710 Acquired absence of both cervix and uterus; Z92.3 Personal history of irradiation; Z98.41 Cataract extraction status, right eye; Z98.42 Cataract extraction status, left eye; Z90.722 Acquired absence of ovaries, bilateral; Z88.1 Allergy status to other antibiotic agents; Z88.0 Allergy status to penicillin; Z88.2 Allergy status to sulfonamides; Z68.34 Body mass index [BMI] 34.0-34.9, adult
CPT/HCPCS: 36415; 71275; 80053; 82553; 82947; 83605; 83735; 83880; 84484; 85007; 85027; 85610; 85730; 87324; 87804; 93005; 94640; 94660; J1815; J1956; J2920; J2930; J3370; J3490; J7040; J7050; J7613; J7620; J7626; Q9967; 99285-25; J7030

== ENCOUNTER 2019-07-04 17:08 | Inpatient (IN) | payer MEDICARE, BC ==
[~2019-07-04] VITALS: Ht 157.5 cm; Wt 86.3 kg
[~2019-07-04 17:08] MED LIST changes: +ALBU2.5V5 NEB; +ALBU2.5V8 IH; -ALBU8.5H3 IH; +AZIT250T PO; +CYAN-25 PO; +DOXY100C2 PO; +ESCITALOPRAM OX20 MG PO; +FLUT1DIS5 IH; +GUAI600T47 PO; +MONT10TA80 PO; +OMEP40CA45 PO; -OMEP40CA5 PO; +PIOG30TA41 PO; +PRED20TA PO; +SIMV40TA18 PO
[2019-07-04] MEDS ORDERED: LEXAPRO20 MG PO (17:24)
[2019-07-04] MEDS ORDERED: CARV25TA2 PO (17:24)
[2019-07-04] MEDS ORDERED: DESL5TAB PO (17:24)
[2019-07-04] MEDS ORDERED: LOSA25TA11 PO (17:24)
[2019-07-04] MEDS ORDERED: ELDE1CAP PO (17:24)
[2019-07-04] MEDS ORDERED: GARL100T PO (17:24)
[2019-07-04] MEDS ORDERED: ASPI-630 PO (17:24)
[2019-07-04 17:58] VITALS: BP 113/46
[2019-07-04] MEDS: oxyCODONE IR 5 MG TABLET PO PRN (18:09)
[2019-07-04] MEDS ORDERED: ALBUTEROL SULFATE 2.5 MG/3 ML NEBU. NEB PRN (20:00)
[2019-07-04] MEDS: IPRATRPIUM/ALBUTEROL 0.5/2.5MG 3 ML NEBU. NEB SCH (20:51)
[2019-07-04] MEDS: BUDESONIDE 0.5 MG/2 ML NEBU NEB SCH (20:51)
[2019-07-04] MEDS: CITALOPRAM 20 MG TABLET. PO SCH (20:57)
[2019-07-04] MEDS: SIMVASTATIN 40 MG TABLET. PO SCH (20:57)
[2019-07-04] MEDS ORDERED: NON FORMULARY ITEM (Fluticasone/Salmeterol (Advair 500-50 Diskus) 1 EACH) IH SCH (21:00)
[2019-07-05] MEDS: IPRATRPIUM/ALBUTEROL 0.5/2.5MG 3 ML NEBU. NEB SCH ×4 (04:43→20:39)
[2019-07-05 05:21] VITALS: BP 143/60
[2019-07-05 06:38] LABS: BASO % 0 % (0-3); EOS # 0.4 x10^3/uL (0.0-0.7); EOS % 10 % (0-3); HEMATOCRIT 25.2 % (36.0-47.0); HEMOGLOBIN 7.8 g/dL (12.0-15.5); LYMPH # 0.4 x10^3/uL (1.0-4.8); LYMPH % 10 % (24-48); MEAN CORPUSCULAR HEMOGLOBIN 27 pg (25-35); MEAN CORPUSCULAR HGB CONC 31 g/dL (31-37); MEAN CORPUSCULAR VOLUME 87 fL (79-100); MONO # 0.7 x10^3/uL (0.0-1.1); MONO % 16 % (0-9); NEUT # 2.6 x10^3uL (1.8-7.7); NEUT % 64 % (31-73); PLATELET COUNT 182 x10^3/uL (140-400)
[2019-07-05 06:52] LABS: ALBUMIN 2.4 g/dL (3.4-5.0); ALBUMIN/GLOBULIN RATIO 0.7 (1.0-1.7); CALCIUM 7.9 mg/dL (8.5-10.1); CREATININE 0.9 mg/dL (0.6-1.0); GFR 61.4; POTASSIUM 4.3 mmol/L (3.5-5.1); TOTAL BILIRUBIN 0.2 mg/dL (0.2-1.0); TOTAL PROTEIN 5.7 g/dL (6.4-8.2)
[2019-07-05] MEDS ORDERED: GARLIC 100 MG PO SCH (09:00)
[2019-07-05] MEDS ORDERED: ELDERBERRY FRUIT AND FLOWER PO SCH (09:00)
[2019-07-05] MEDS ORDERED: CETIRIZINE HCL 10 MG TABLET PO PRN (09:00)
[2019-07-05] MEDS ORDERED: NON FORMULARY ITEM (Tiotropium Bromide (Spiriva) 1 CAP) IH SCH (09:00)
[2019-07-05] MEDS: PIOGLITAZONE 15 MG TABLET. PO SCH (09:07)
[2019-07-05] MEDS: oxyCODONE IR 5 MG TABLET PO PRN ×2 (09:07→12:44)
[2019-07-05] MEDS: LOSARTAN 25 MG TABLET. PO SCH (09:07)
[2019-07-05] MEDS: ASPIRIN 81 MG TAB.CHEW PO SCH (09:07)
[2019-07-05] MEDS: PANTOPRAZOLE 40 MG TABLET. PO SCH (09:07)
[2019-07-05] MEDS: CARVEDILOL 12.5 MG TABLET PO SCH ×2 (09:08→17:00)
[2019-07-05] MEDS: CYANOCOBALAMIN (VITAMIN B-12) 1,000 MCG TABLET. PO SCH (09:08)
[2019-07-05] MEDS: BUDESONIDE 0.5 MG/2 ML NEBU NEB SCH ×2 (09:28→20:39)
[2019-07-05 18:10] VITALS: BP 99/38
[2019-07-05 19:50] VITALS: BP 116/41
[2019-07-05] MEDS: CITALOPRAM 20 MG TABLET. PO SCH (20:24)
[2019-07-05] MEDS: SIMVASTATIN 40 MG TABLET. PO SCH (20:24)
[2019-07-06] MEDS: IPRATRPIUM/ALBUTEROL 0.5/2.5MG 3 ML NEBU. NEB SCH ×2 (05:01→09:39)
[2019-07-06 06:14] VITALS: BP 151/47
[2019-07-06] MEDS: PIOGLITAZONE 15 MG TABLET. PO SCH (08:32)
[2019-07-06] MEDS: PANTOPRAZOLE 40 MG TABLET. PO SCH (08:32)
[2019-07-06] MEDS: LOSARTAN 25 MG TABLET. PO SCH (08:33)
[2019-07-06] MEDS: CARVEDILOL 12.5 MG TABLET PO SCH ×2 (08:33→17:54)
[2019-07-06] MEDS: CYANOCOBALAMIN (VITAMIN B-12) 1,000 MCG TABLET. PO SCH (08:33)
[2019-07-06] MEDS: ASPIRIN 81 MG TAB.CHEW PO SCH (08:34)
[2019-07-06] MEDS: BUDESONIDE 0.5 MG/2 ML NEBU NEB SCH (09:39)
[2019-07-06] MEDS: oxyCODONE IR 5 MG TABLET PO PRN ×2 (13:41→20:57)
[2019-07-06] MEDS ORDERED: WARFARIN 3 MG TABLET. PO ONE (16:00)
[2019-07-06 17:37] VITALS: BP 155/47
[2019-07-06] MEDS: ADVAIR INH SCH (20:56)
[2019-07-06] MEDS: CITALOPRAM 20 MG TABLET. PO SCH (20:56)
[2019-07-06] MEDS: SIMVASTATIN 40 MG TABLET. PO SCH (20:56)
[2019-07-07] MEDS: oxyCODONE IR 5 MG TABLET PO PRN ×2 (04:02→17:44)
[2019-07-07 05:13] VITALS: BP 132/50
[2019-07-07] MEDS: CARVEDILOL 12.5 MG TABLET PO SCH ×2 (08:00→17:04)
[2019-07-07] MEDS: LOSARTAN 25 MG TABLET. PO SCH (08:53)
[2019-07-07] MEDS: ASPIRIN 81 MG TAB.CHEW PO SCH (08:53)
[2019-07-07] MEDS: PIOGLITAZONE 15 MG TABLET. PO SCH (08:53)
[2019-07-07] MEDS: ADVAIR INH SCH ×2 (08:54→21:16)
[2019-07-07] MEDS: SPIRIVA 18 MCG INH SCH (08:54)
[2019-07-07] MEDS: CYANOCOBALAMIN (VITAMIN B-12) 1,000 MCG TABLET. PO SCH (08:54)
[2019-07-07] MEDS: PANTOPRAZOLE 40 MG TABLET. PO SCH (08:54)
[2019-07-07 11:00] VITALS: BP 118/40
[2019-07-07 11:48] VITALS: BP 126/38
[2019-07-07 11:49] VITALS: BP 142/55
--- NOTE | 2019-07-07 13:52 | HP ---
ADMIT DATE: 07/07/2019 HISTORY OF PRESENT ILLNESS: The patient is a 74-year-old female patient who was admitted on 07/01/2019 to [facility] on account of worsening pain in her right hip for the last 5 years, bothering her much more so often than the left probably. This pain had started when she fell out of bed about 4 years ago, more recent traumatic episodes of fall over her oxygen tubing about ____ ago and each time increased pain in the right hip, which is not very severe and getting worse over the past several months. She was seen in consultation by the orthopedic surgeon, was admitted to [facility] and underwent right total hip arthroplasty successfully and was transferred to our hospital swing bed to continue with pain management, DVT prophylaxis as well as to start the process of rehabilitation. PAST MEDICAL HISTORY: Significant for cerebrovascular accident, lung cancer. bronchial asthma, chronic back pain, dysphagia, gastroesophageal reflux disease, incontinence, hypertension, stress urinary incontinence, chronic sinusitis and history of DVT. PAST SURGICAL HISTORY: Significant for thoracotomy, partial lung removal due to cancer in 2005. FAMILY HISTORY: Her mother is still alive. Her father from lung cancer. SOCIAL HISTORY: She apparently quit smoking after about 30 years history of smoking, denied any drug or alcohol consumption. ALLERGIES: She is allergic to PENICILLIN, SULFA and OMNICEF. MEDICATIONS: She is currently on following medications: She is on Clarinex 5 mg daily, tiotropium bromide for Spiriva 2 inhalations once a day, albuterol sulfate 2 puffs every 4-6 hours, albuterol by nebulizer every 6 hours, warfarin sodium 3 mg daily, simvastatin 40 mg daily, carvedilol 25 mg twice a day with meals, losartan potassium 25 mg once a day, aspirin 81 mg once a day, oxycodone 5 mg every 4 hours as needed, escitalopram oxalate for Lexapro 20 mg at bedtime, Advair Diskus 250/50 one inhalation twice a day, omeprazole 40 mg once a day, pioglitazone for Actos 30 mg daily. She is also elderberry fruits and narayanan 1 capsule once a day and garlic 100 mg daily. REVIEW OF SYSTEMS: As per history of present illness. PHYSICAL EXAMINATION GENERAL: When I examined her today, she looked well and was clearly in no apparent respiratory distress, somewhat pale, but no jaundice, cyanosis or thyromegaly. No jugular venous distention. No lower limb edema. VITAL SIGNS: Her heart rate was 70, blood pressure 142/55, temperature was 98.2, respiratory rate was 24 and oxygen saturation was 94% on 3 liters of oxygen by nasal cannula. HEAD, EYES, EARS, NOSE AND THROAT: Showed normocephalic, atraumatic. NECK: Supple. HEART: Showed normal first and second heart sounds. No gallop or murmur. CHEST: Shows central trachea, equally reduced expansion, reduced air entry, vesicular sounds, few scattered rhonchi, could not appreciate any crepitation. ABDOMEN: Distended, soft, nontender. NEUROLOGIC: She is awake, alert, responding appropriately. All cranial nerves intact. EXTREMITIES: She moves extremities without difficulty. LABORATORY DATA: Showed a white cell count of 4000, hemoglobin 7.8, hematocrit 25, MCV 87 and platelet count of 182,000. Her chemistry showed serum sodium 142, potassium 4.3, chloride 104, bicarbonate 36, anion gap of 2, BUN 33, creatinine 0.9, estimated GFR was 61 mL per minute. Her glucose 116, calcium was 7.9. Total bilirubin, AST, ALT, alkaline phosphatase were normal. Total protein was 5.7, albumin was 2.4. Her prothrombin time was 15.5, INR 1.5. ASSESSMENT AND PLAN: In summary, this is a 74-year-old female patient who was admitted with severe pain in her right hip joint, aggravated by multiple falls, for which she underwent elective right total hip arthroplasty. She has multiple other medical problems including cerebrovascular accident, lung cancer, requiring partial lobectomy, bronchial asthma, gastroesophageal reflux disease, hypertension, hyperlipidemia, chronic obstructive pulmonary disease, normochromic normocytic anemia. NOVA CULVER MD DR: HEMAL/martha JOB#: [id number] / [id number]
[2019-07-07] MEDS: WARFARIN 2.5 MG TABLET. PO SCH (15:38)
[2019-07-07 17:01] VITALS: BP 140/43
[2019-07-07] MEDS: SIMVASTATIN 40 MG TABLET. PO SCH (21:16)
[2019-07-07] MEDS: CITALOPRAM 20 MG TABLET. PO SCH (21:16)
[2019-07-08 05:42] VITALS: BP 151/45
[2019-07-08] MEDS: ASPIRIN 81 MG TAB.CHEW PO SCH (08:54)
[2019-07-08] MEDS: PANTOPRAZOLE 40 MG TABLET. PO SCH (08:54)
[2019-07-08] MEDS: LOSARTAN 25 MG TABLET. PO SCH (08:54)
[2019-07-08] MEDS: PIOGLITAZONE 15 MG TABLET. PO SCH (08:54)
[2019-07-08] MEDS: CARVEDILOL 12.5 MG TABLET PO SCH ×2 (08:55→17:00)
[2019-07-08] MEDS: CYANOCOBALAMIN (VITAMIN B-12) 1,000 MCG TABLET. PO SCH (08:55)
[2019-07-08] MEDS: ADVAIR INH SCH ×2 (08:56→20:55)
[2019-07-08] MEDS: SPIRIVA 18 MCG INH SCH (08:56)
[2019-07-08] MEDS: ACETAMINOPHEN 325 MG TABLET PO PRN ×3 (09:35→20:55)
[2019-07-08 11:45] VITALS: BP 112/48
[2019-07-08] MEDS ORDERED: WARFARIN 2 MG TABLET. PO ONE (16:00)
[2019-07-08 16:15] VITALS: BP 130/49
[2019-07-08] MEDS: WARFARIN 2.5 MG TABLET. PO SCH (16:52)
[2019-07-08 19:40] VITALS: BP 146/52
[2019-07-08] MEDS: SIMVASTATIN 40 MG TABLET. PO SCH (20:55)
[2019-07-08] MEDS: CITALOPRAM 20 MG TABLET. PO SCH (20:55)
[2019-07-09] MEDS: ACETAMINOPHEN 325 MG TABLET PO PRN ×2 (03:02→10:12)
[2019-07-09 06:07] VITALS: BP 150/51
[2019-07-09] MEDS: SPIRIVA 18 MCG INH SCH (09:00)
[2019-07-09] MEDS: ADVAIR INH SCH (09:00)
[2019-07-09] MEDS: ASPIRIN 81 MG TAB.CHEW PO SCH (10:07)
[2019-07-09] MEDS: CYANOCOBALAMIN (VITAMIN B-12) 1,000 MCG TABLET. PO SCH (10:07)
[2019-07-09] MEDS: PIOGLITAZONE 15 MG TABLET. PO SCH (10:07)
[2019-07-09] MEDS: CARVEDILOL 12.5 MG TABLET PO SCH ×2 (10:07→16:30)
[2019-07-09] MEDS: PANTOPRAZOLE 40 MG TABLET. PO SCH (10:07)
[2019-07-09] MEDS: LOSARTAN 25 MG TABLET. PO SCH (10:08)
[2019-07-09] MEDS: oxyCODONE IR 5 MG TABLET PO PRN (14:07)
[2019-07-09] MEDS ORDERED: WARFARIN 2 MG TABLET. PO ONE (16:00)
[2019-07-09] MEDS ORDERED: WARFARIN 6 MG TABLET. PO ONE (16:00)
[2019-07-09] MEDS ORDERED: WARFARIN 2.5 MG TABLET. PO ONE (16:00)
[2019-07-09 17:51] VITALS: BP 106/39
[2019-07-09 17:59] VITALS: BP 114/37
[2019-07-09] MEDS ORDERED: HYDR-2155 PO (19:15)
== END 2019-07-09 18:12 | disposition home or self-care (01) | DRG 556 ==
LOC: LND 17:08
PROVIDERS: ADMIT Internal Medicine; ATTEND Internal Medicine
DX: M25.551 Pain in right hip (principal); G89.29 Other chronic pain; Z96.641 Presence of right artificial hip joint; R29.6 Repeated falls; E78.5 Hyperlipidemia, unspecified; J44.9 Chronic obstructive pulmonary disease, unspecified; I10 Essential (primary) hypertension; D64.9 Anemia, unspecified; K21.9 Gastro-esophageal reflux disease without esophagitis; Z86.73 Personal history of transient ischemic attack (TIA), and cerebral infarction without residual deficits; Z86.718 Personal history of other venous thrombosis and embolism; Z80.1 Family history of malignant neoplasm of trachea, bronchus and lung; Z85.118 Personal history of other malignant neoplasm of bronchus and lung
CPT/HCPCS: 36415; 80053; 82947; 84484; 85025; 85610; 94640; 94760; J7620; J7626; 97110; 97116; 97530; 97535

== ENCOUNTER 2019-07-09 18:21 | Inpatient (IN) | payer MEDICARE, BC ==
[~2019-07-09] VITALS: Ht 157.5 cm; Wt 90.4 kg
[~2019-07-09 18:21] MED LIST changes: +ASPI-630 PO; +CARV25TA2 PO; +ELDE1CAP PO; +GARL100T PO; +LEXAPRO20 MG PO; +LOSA25TA11 PO
[2019-07-09] MEDS: IV NORMAL SALINE 1,000ML 1,000 ML IV SCH (18:30)
[2019-07-09] MEDS ORDERED: ALBUTEROL SULFATE 2.5 MG/3 ML NEBU. IH PRN (18:30)
[2019-07-09 18:49] LABS: BASO # 0.1 x10^3/uL (0.0-0.2); BASO % 1 % (0-3); EOS # 0.4 x10^3/uL (0.0-0.7); EOS % 4 % (0-3); HEMATOCRIT 27.6 % (36.0-47.0); HEMOGLOBIN 8.5 g/dL (12.0-15.5); LYMPH % 10 % (24-48); MEAN CORPUSCULAR HEMOGLOBIN 27 pg (25-35); MEAN CORPUSCULAR HGB CONC 31 g/dL (31-37); MEAN CORPUSCULAR VOLUME 86 fL (79-100); MONO # 0.7 x10^3/uL (0.0-1.1); MONO % 7 % (0-9); NEUT # 7.9 x10^3uL (1.8-7.7); NEUT % 78 % (31-73); PLATELET COUNT 315 x10^3/uL (140-400); RED BLOOD COUNT 3.19 x10^6/uL (3.50-5.40); RED CELL DISTRIBUTION WIDTH 15.8 % (11.5-14.5); WHITE BLOOD COUNT 10.2 x10^3/uL (4.0-11.0)
[2019-07-09 18:50] VITALS: BP 113/50
[2019-07-09 18:56] LABS: CALCIUM 8.6 mg/dL (8.5-10.1); GFR 54.3; POTASSIUM 4.7 mmol/L (3.5-5.1)
[2019-07-09 19:03] LABS: ALBUMIN 2.8 g/dL (3.4-5.0); ALBUMIN/GLOBULIN RATIO 0.9 (1.0-1.7); TOTAL BILIRUBIN 0.3 mg/dL (0.2-1.0)
[2019-07-09] MEDS ORDERED: HYDR-2155 PO (19:15)
[2019-07-09] MEDS ORDERED: HYDROcodone/APAP 5/325MG 1 TAB TABLET PO PRN (19:15)
[2019-07-09] MEDS ORDERED: ALBUTEROL SULFATE 2.5 MG/3 ML NEBU. NEB SCH (20:00)
[2019-07-09] MEDS ORDERED: NON FORMULARY ITEM (Doxycycline Hyclate 1 CAP) PO SCH (21:00)
[2019-07-09] MEDS ORDERED: MONTELUKAST 10 MG TABLET. PO SCH (21:00)
[2019-07-09] MEDS ORDERED: predniSONE 20 MG TABLET PO SCH (21:00)
[2019-07-09] MEDS ORDERED: ESCITALOPRAM OXALATE PO SCH (21:00)
[2019-07-09] MEDS: SIMVASTATIN 40 MG TABLET. PO SCH (21:19)
[2019-07-09] MEDS: CITALOPRAM 20 MG TABLET. PO SCH (21:19)
[2019-07-09 23:49] VITALS: BP 96/40
[2019-07-10 03:12] VITALS: BP 158/68
[2019-07-10 05:17] VITALS: BP 140/62
[2019-07-10 06:27] LABS: HEMOGLOBIN 7.8 g/dL (12.0-15.5); RED BLOOD COUNT 2.89 x10^6/uL (3.50-5.40); RED CELL DISTRIBUTION WIDTH 16.4 % (11.5-14.5); WHITE BLOOD COUNT 9.7 x10^3/uL (4.0-11.0)
[2019-07-10 06:44] LABS: ALBUMIN 2.4 g/dL (3.4-5.0); ALBUMIN/GLOBULIN RATIO 0.8 (1.0-1.7); CALCIUM 8.1 mg/dL (8.5-10.1); CREATININE 0.8 mg/dL (0.6-1.0); GFR 70.3; POTASSIUM 4.3 mmol/L (3.5-5.1); TOTAL BILIRUBIN 0.2 mg/dL (0.2-1.0); TOTAL PROTEIN 5.6 g/dL (6.4-8.2)
[2019-07-10] MEDS: IV NORMAL SALINE 1,000ML 1,000 ML IV SCH ×2 (07:50→16:42)
[2019-07-10] MEDS ORDERED: CARVEDILOL 12.5 MG TABLET PO SCH (08:00)
[2019-07-10] MEDS: LOSARTAN 25 MG TABLET. PO SCH (09:00)
[2019-07-10] MEDS ORDERED: WARFARIN 6 MG TABLET. PO SCH (09:00)
[2019-07-10] MEDS ORDERED: CETIRIZINE HCL 10 MG TABLET PO PRN (09:00)
[2019-07-10] MEDS ORDERED: ELDERBERRY FRUIT AND FLOWER PO SCH (09:00)
[2019-07-10] MEDS ORDERED: GARLIC 100 MG PO SCH (09:00)
[2019-07-10] MEDS ORDERED: CONTRAST GIVEN MC PRN (10:00)
[2019-07-10] MEDS ORDERED: IOHEXOL 350 MG/ML 100 ML VIAL. IV ONE (10:00)
[2019-07-10] MEDS: ASPIRIN 81 MG TAB.CHEW PO SCH (10:45)
[2019-07-10] MEDS: PANTOPRAZOLE 40 MG TABLET. PO SCH (10:45)
[2019-07-10] MEDS: CYANOCOBALAMIN (VITAMIN B-12) 1,000 MCG TABLET. PO SCH (10:45)
[2019-07-10] MEDS: PIOGLITAZONE 15 MG TABLET. PO SCH (10:46)
[2019-07-10] MEDS: TIOTROPIUM BROMIDE INH SCH (10:47)
[2019-07-10 10:49] VITALS: BP 115/41
--- NOTE | 2019-07-10 11:44 | RAD ---
EXAM: CT ANGIOGRAPHY OF THE CHEST WITH AND WITHOUT CONTRAST. HISTORY: Shortness of breath. TECHNIQUE: Computed tomographic angiography of the chest was performed before and after the intravenous administration of iodinated contrast. 3-D maximum intensity projections were also performed. One or more of the following individualized dose reduction techniques were utilized for this examination: 1. Automated exposure control. 2. Adjustment of the mA and/or kV according to patient size. 3. Use of iterative reconstruction technique. COMPARISON: 09/22/2016. FINDINGS: Images of the upper abdomen reveal a small to moderate hiatal hernia. Bone windows reveal no suspicious lesions. No pulmonary emboli are identified. There is no aortic dissection or aneurysm. Fiducial markers are noted in the right upper lobe. Additional fiducial markers are seen in a region of post treatment consolidation in the left lower lobe. This posttreatment change has progressed since the prior study. Other fiducial markers are seen medially in the left lower lobe. A nodule in the left lower lobe measures 6 mm. Other smaller nodules adjacent to this measures 6 mm or less. A lower paratracheal lymph node measures 1.8 x 1.1 cm. There are trace bilateral pleural effusions. There is no pericardial effusion. The heart is not enlarged. There are atherosclerotic calcifications of the coronary arteries. IMPRESSION: 1. No pulmonary embolism. 2. Progression of posttreatment changes in the left perihilar region. Fiducial markers are noted elsewhere in the left lower lobe and right upper lobe. 3. Small nodules in the left lower lobe measure up to 6 mm. Some are stable chronically but others are new. Follow-up is recommended in 3 of in 6 months. 4. Small bilateral pleural effusions. 5. A small to moderate hiatal hernia contains mostly fat. Electronically signed by: Jose Alfredo Cardenas MD (07/10/2019 11:41 AM) [facility]
[2019-07-10] MEDS: ACETAMINOPHEN 325 MG TABLET PO PRN ×2 (12:37→21:09)
[2019-07-10 14:17] VITALS: BP 135/62
--- NOTE | 2019-07-10 16:40 | HP ---
ADMIT DATE: 07/09/2019 HISTORY OF PRESENT ILLNESS: The patient is a 74-year-old female patient who was at swing bed in [facility] to continue the process of rehabilitation as she underwent an elective right total hip arthroplasty. Apparently she was noted to be markedly hypotensive last night with a systolic pressure of about 76. Her INR was somewhat subtherapeutic and I was actually concerned that she might have thrown an embolus as her INR was consistently within normal range. In fact, yesterday, her INR was 1.2 and therefore, she was given a liter of normal saline. We increased her Coumadin to 6 mg and we transferred her to acute care and arranged for her to have a CT angio of the chest to rule out the pulmonary emboli and was continued on IV fluid. PHYSICAL EXAMINATION: GENERAL: When she arrived to the acute care, she was pale, but no jaundice, cyanosis or thyromegaly. No jugular venous distention. No lower limb edema. VITAL SIGNS: Her heart rate was 63, blood pressure was 96/40, temperature was 97.9, respiratory rate was 18 and oxygen saturation was 97% on 3 liters of oxygen. This was after she received about 500 mL of fluid. HEAD, EYES, EARS, NOSE AND THROAT: Showed normocephalic, atraumatic. NECK: Supple. HEART: Showed normal first and second heart sounds. No gallop, rub or murmur. CHEST: Clear to auscultation. No crepitation or rhonchi. ABDOMEN: Distended, soft, nontender. NEUROLOGIC: She was awake, alert, responding appropriately. All cranial nerves intact. EXTREMITIES: She moves extremities without difficulty. She ambulates with a walker. LABORATORY DATA: Showed a white cell count of 10,200, hemoglobin 8.5, hematocrit 27.8, MCV 86 and platelet count of 315,000. Her prothrombin time this morning was 14.3, INR 1.4. D-dimer was high at 2.42 and her chemistry showed a serum sodium 146, potassium 4.7, chloride 105, bicarbonate 36, anion gap of 5, BUN 21, creatinine was 1. Estimated GFR was 54 mL per minute. Her glucose was 50. Calcium was 8.6. Total bilirubin, AST, ALT, alkaline phosphatase were normal. Total protein was 6, albumin was 2.8. Troponin was less than 0.017. ASSESSMENT AND PLAN: In summary, this is a 74-year-old female patient who was transferred to acute care because of hypotension. Her D-dimer was slightly elevated. She was given IV fluid in the form of 500 mL normal saline bolus and continued at 75 mL per hour and increased her Coumadin to 6 mg and as her D-dimer was high, we have arranged for her to have a CT scan of the chest with PE protocol. The patient will continue all her other medications that included Clarinex 5 mg once a day, tiotropium bromide for Spiriva HandiHaler 1 inhalation once a day, albuterol sulfate for ProAir 2 puffs every 4-6 hours, albuterol sulfate 2.5 mg by nebulizer 4 times a day. She is on Coumadin 6 mg daily, simvastatin 40 mg at bedtime. Her carvedilol 25 mg twice a day and losartan potassium 25 mg once a day, aspirin 81 mg once a day, hydrocodone/APAP 5/325 one tablet every 6 hours, escitalopram oxalate 20 mg at bedtime, Advair Diskus 500/50 one capsule twice a day, omeprazole 40 mg daily, pioglitazone 30 mg once a day, cyanocobalamin 1000 mcg tablet once a day and elderberry fruit and narayanan 1 capsule once a day and garlic 100 mg once a day. NOVA CULVER MD DR: HEMAL/martha JOB#: [id number] / [id number]
[2019-07-10] MEDS ORDERED: WARFARIN 6 MG TABLET. PO ONE (17:00)
--- NOTE | 2019-07-10 17:45 | RAD ---
CT PELVIS WO CONTRAST History: Recent hip replacement. Episode of hypotension. Technique: Noncontrast examination of the pelvis. Coronal and sagittal reconstructions were performed. Exposure: One or more of the following individualized dose reduction techniques were utilized for this examination: 1. Automated exposure control 2. Adjustment of the mA and/or kV according to patient size 3. Use of iterative reconstruction technique. Comparison: CT chest July 10, 2019 Findings: Persistent regions of enhancement within the right kidney from recent CT chest. Colonic diverticulosis. Normal appendix. No evidence of bowel obstruction. Fat-containing small umbilical hernia. Decompressed urinary bladder. No pathologic lymphadenopathy. No ascites. No pneumoperitoneum. No pneumatosis. Prior hysterectomy. Right total hip arthroplasty. There is adjacent soft tissue infiltration, likely within normal range for postoperative state. Additional nonspecific mild body wall edema. Advanced left hip DJD. Lower lumbar spondylosis. Impression: 1. Persistent regions of enhancement within the right kidney, may relate to renal dysfunction. Recommend clinical evaluation. 2. Right total hip arthroplasty. 3. Mild nonspecific body wall edema. Electronically signed by: Kaiden Gonzalez DO (07/10/2019 5:42 PM) [id number]
--- NOTE | 2019-07-10 17:51 | RAD ---
Examination: Right Lower Extremity Venous Doppler Ultrasound History: Right leg swelling Comparison: None Procedure: Freedman scale, color flow 2D and spectal waveform analysis images are obtained with and without compression in the area of the common femoral vein, superficial femoral vein - femoral vein junction, main femoral vein (superficial femoral vein) and popliteal vein. Veins of the proximal calf are also imaged. Findings: There is normal duplex flow, color flow and compressibility of all visualized vein segments. No evidence of deep venous thrombus is present. Impression: No evidence of DVT in the right lower extremity venous system. Electronically signed by: Jerod Soto MD (07/10/2019 5:48 PM) [id number]
[2019-07-10 19:54] VITALS: BP 118/65
[2019-07-10] MEDS: CITALOPRAM 20 MG TABLET. PO SCH (21:09)
[2019-07-10] MEDS: SIMVASTATIN 40 MG TABLET. PO SCH (21:09)
[2019-07-10 23:04] VITALS: BP 143/58
--- NOTE | 2019-07-11 04:24 | PN ---
DATE: SUBJECTIVE: The patient was transferred yesterday from swing bed to acute care because of hypertension. She did receive about 500 mL of normal saline bolus, continued at 75 mL. I did increase her Coumadin to 6 mg as her INR was supratherapeutic and D-dimer was high more than 2 mg. She had had a CT angio of the chest which basically showed that there is no pulmonary embolism. She has progression of post-treatment changes in the left perihilar region. Fiducial markers are noted elsewhere in the left lower lobe and right upper lobe, a small nodule in the left lower lobe measures up to 6 mm. Some are stable chronically, but others are new. Followup is recommended in 3 to 6 months. She has small bilateral pleural effusion, a small to moderate hiatal hernia contains mostly fat. Apparently, the nursing staff was reviewing her medication list and transpired that she was on higher dose of carvedilol up to 25 mg twice a day while normally at home she is only at 3.125 mg twice a day that might explain why she is hypertensive. OBJECTIVE: GENERAL: In any case when I saw her this afternoon she looked well and was clearly in no apparent respiratory distress. No pallor, jaundice, cyanosis, or thyromegaly. No jugular venous distension. No limb edema. VITAL SIGNS: Her heart rate was 69, blood pressure was 135/62, temperature was 97.9, respiratory rate was 20, and oxygen saturation was 98% on 3 liters of oxygen. HEAD, EYES, EARS, NOSE AND THROAT: Showed normocephalic, atraumatic. NECK: Supple. HEART: Showed normal first and second heart sounds. No gallop or murmur. CHEST: Clear to auscultation. No crepitation or rhonchi. ABDOMEN: Distended, soft, nontender. NEUROLOGIC: She is awake, alert, responding appropriately. All cranial nerves intact. She moves extremities without difficulty. She ambulates with a walker. Examination of her right lower extremity compared to the left is more swollen and there are bruises on the outer aspect of the thigh and leg extending over the right foot. LABORATORY DATA: Her lab work this morning showed a white cell count of 9700, hemoglobin 7.8, hematocrit 25, MCV 87 and platelet count 296,000. Her chemistry showed a serum sodium of 145, potassium 4.3, chloride 106, bicarbonate 35, anion gap of 4, BUN 18, creatinine 0.8, estimated GFR was 70 mL per minute. Her glucose 127, calcium was 8.1. Total bilirubin, AST, ALT, alkaline phosphatase were normal. Total protein 5.6, albumin 2.4. Her prothrombin time was 14.3, INR of 1.4. ASSESSMENT: Hypertension likely due to a higher dose of Coreg of 25 mg twice a day. We will cut down back to her usual dose of 3.125 mg twice a day. I will arrange for her to have a CT scan of the pelvis and right hip joint as well as venous Doppler ultrasound of the right lower extremity. NOVA CULVER MD DR: HEMAL/martha JOB#: [id number] / [id number]
[2019-07-11 05:55] VITALS: BP 163/71
[2019-07-11 06:23] LABS: HEMATOCRIT 24.8 % (36.0-47.0); HEMOGLOBIN 7.7 g/dL (12.0-15.5); RED BLOOD COUNT 2.85 x10^6/uL (3.50-5.40); RED CELL DISTRIBUTION WIDTH 16.1 % (11.5-14.5); WHITE BLOOD COUNT 8.2 x10^3/uL (4.0-11.0)
[2019-07-11 06:33] LABS: CREATININE 0.7 mg/dL (0.6-1.0); POTASSIUM 4.1 mmol/L (3.5-5.1)
[2019-07-11] MEDS: CARVEDILOL 12.5 MG TABLET PO SCH ×2 (08:19→15:53)
[2019-07-11] MEDS: PIOGLITAZONE 15 MG TABLET. PO SCH (08:19)
[2019-07-11] MEDS: ASPIRIN 81 MG TAB.CHEW PO SCH (08:20)
[2019-07-11] MEDS: PANTOPRAZOLE 40 MG TABLET. PO SCH (08:20)
[2019-07-11] MEDS: LOSARTAN 25 MG TABLET. PO SCH (08:20)
[2019-07-11] MEDS: CYANOCOBALAMIN (VITAMIN B-12) 1,000 MCG TABLET. PO SCH (08:20)
[2019-07-11] MEDS: TIOTROPIUM BROMIDE INH SCH (08:25)
[2019-07-11] MEDS: IV NORMAL SALINE 1,000ML 1,000 ML IV SCH ×2 (08:26→23:50)
[2019-07-11] MEDS: ACETAMINOPHEN 325 MG TABLET PO PRN ×2 (09:12→16:25)
[2019-07-11 10:41] VITALS: BP 113/70
[2019-07-11 11:00] VITALS: BP 133/58
[2019-07-11 15:42] VITALS: BP 175/62
[2019-07-11] MEDS ORDERED: WARFARIN 6 MG TABLET. PO SCH (16:00)
[2019-07-11 19:00] VITALS: BP 149/80
--- NOTE | 2019-07-11 19:11 | PN ---
DATE: 07/11/2019 SUBJECTIVE: The patient is resting slightly propped up in bed, in no apparent distress. On questioning her, denied any complaint. The nursing staff did not voice any concern. We did actually venous Doppler ultrasound of the right lower extremity, which showed no evidence of deep vein thrombosis in her right lower extremity venous system. CT scan of the pelvis showed that there is persistent region of enhancement within the right kidney, may relate to renal dysfunction. Recommend clinical evaluation. She has right total hip arthroplasty and mild nonspecific body wall edema. Her INR continues to be subtherapeutic at 14.6 and 1.4.: Her CBC showed a white cell count of 8200, hemoglobin was 7.7, hematocrit 24.8, MCV 87 and platelet count 280,000. Her prothrombin time was 14.6, INR 1.4 and her serum sodium was 146, potassium 4.1, chloride 108, bicarbonate 35, anion gap of 3, BUN 16, creatinine 0.7, estimated GFR was 82 mL per minute. Her glucose 122 and calcium was 8. ASSESSMENT: An episode of hypotension likely due to a higher dose of Coreg that she was on at home, she was on 3.125 mg twice a day and when she came to us from [facility] she actually was on 25 mg twice a day and therefore we did cut down that dose back to normal. Her blood pressure remained stable Her D-dimer was elevated, so we did CT angio of the chest, which was negative for PE. Ultrasound of the right lower extremity was negative for deep vein thrombosis. Her H and H were slightly lower and there is marked bruises on the right lower extremity; however, CT scan showed no evidence of any hematoma. She has multiple other medical problems including had had history of cerebrovascular accident, lung cancer, bronchial asthma, chronic back pain, dysphagia, gastroesophageal reflux disease, hypertension, stress urinary incontinence, chronic sinusitis and history of DVT. PLAN: My plan is to increase her Coumadin to 8 mg. We discussed the plan of care, whether she needs to go back to swing bed and according to physical therapy and occupational therapy she is fairly independent and therefore we will keep her in the acute care, continue to monitor her prothrombin time and INR and adjust Coumadin to maintain INR between 2-2.5, continue with physical and occupational therapy. I will check also her serum iron, TIBC and serum ferritin and we will start her on iron if need be. We will continue obviously with pain management and DVT prophylaxis. NOVA CULVER MD DR: HEMAL/martha JOB#: [id number] / [id number]
[2019-07-11] MEDS: SIMVASTATIN 40 MG TABLET. PO SCH (21:54)
[2019-07-11] MEDS: CITALOPRAM 20 MG TABLET. PO SCH (21:54)
[2019-07-11 23:42] VITALS: BP 132/61
[2019-07-12 05:45] VITALS: BP 161/80
[2019-07-12 07:24] LABS: HEMATOCRIT 25.7 % (36.0-47.0); HEMOGLOBIN 7.9 g/dL (12.0-15.5)
[2019-07-12 07:26] LABS: CALCIUM 8.4 mg/dL (8.5-10.1); CREATININE 0.7 mg/dL (0.6-1.0); POTASSIUM 4.1 mmol/L (3.5-5.1)
[2019-07-12] MEDS: ACETAMINOPHEN 325 MG TABLET PO PRN ×2 (08:40→17:00)
[2019-07-12] MEDS: PIOGLITAZONE 15 MG TABLET. PO SCH (08:40)
[2019-07-12] MEDS: PANTOPRAZOLE 40 MG TABLET. PO SCH (08:40)
[2019-07-12] MEDS: ASPIRIN 81 MG TAB.CHEW PO SCH (08:41)
[2019-07-12] MEDS: LOSARTAN 25 MG TABLET. PO SCH (08:41)
[2019-07-12] MEDS: CYANOCOBALAMIN (VITAMIN B-12) 1,000 MCG TABLET. PO SCH (08:42)
[2019-07-12] MEDS: TIOTROPIUM BROMIDE INH SCH (08:42)
[2019-07-12] MEDS: CARVEDILOL 12.5 MG TABLET PO SCH ×2 (08:42→17:00)
[2019-07-12 11:03] VITALS: BP 129/57
[2019-07-12 15:37] VITALS: BP 152/67
[2019-07-12] MEDS ORDERED: WARFARIN 4 MG TABLET. PO SCH (16:00)
[2019-07-12 19:40] VITALS: BP 164/85
[2019-07-12] MEDS: CITALOPRAM 20 MG TABLET. PO SCH (20:50)
[2019-07-12] MEDS: SIMVASTATIN 40 MG TABLET. PO SCH (20:51)
--- NOTE | 2019-07-12 22:31 | PN ---
DATE: 07/12/2019 SUBJECTIVE: The patient is sitting in her chair comfortably, in no apparent distress. She is eager to go home. She has been up and about walking with a walker without any assistance. Her INR is unfortunately still subtherapeutic. Therefore, I recommended she stays one more night. Meanwhile, she will continue with physical and occupational therapy and will be discharged home tomorrow. PHYSICAL EXAMINATION: GENERAL: When I saw her this morning, she looked well and was clearly in no apparent respiratory distress, slightly pale. VITAL SIGNS: Her heart rate was 73, blood pressure was 161/80, temperature was 98, respiratory rate was 18 and oxygen saturation was 98% on 2 liters of oxygen. HEENT: No jaundice, cyanosis or thyromegaly. NECK: No jugular venous distention. EXTREMITIES: No limb edema. The rest of clinical exam is stable. Her intake over the last 24 hours was 3647, no output was recorded. LABORATORY DATA: Her lab work this morning showed hemoglobin of 7.9, hematocrit was 25.7. Prothrombin time was 20.1, INR 1.9. Her chemistry showed her serum sodium of 145, potassium 4.1, chloride 107, bicarbonate 35, anion gap of , BUN 15, creatinine 0.7, estimated GFR was 82 mL per minute. Her glucose 132, calcium was 8.4. PLAN: My plan is to obviously continue with all her current medications. Continue with Coumadin at 8 mg. I will repeat her PT and INR tomorrow, and once it is within therapeutic range, she can be discharged home to follow with her primary care physician as an outpatient. NOVA CULVER MD DR: HEMAL/martha JOB#: [id number] / [id number]
[2019-07-13 06:23] VITALS: BP 167/64
[2019-07-13] MEDS: ASPIRIN 81 MG TAB.CHEW PO SCH (08:55)
[2019-07-13] MEDS: PANTOPRAZOLE 40 MG TABLET. PO SCH (08:55)
[2019-07-13] MEDS: CYANOCOBALAMIN (VITAMIN B-12) 1,000 MCG TABLET. PO SCH (08:56)
[2019-07-13] MEDS: CARVEDILOL 12.5 MG TABLET PO SCH (08:56)
[2019-07-13] MEDS: LOSARTAN 25 MG TABLET. PO SCH (08:57)
[2019-07-13] MEDS: PIOGLITAZONE 15 MG TABLET. PO SCH (08:57)
[2019-07-13] MEDS: TIOTROPIUM BROMIDE INH SCH (08:58)
[2019-07-13] MEDS: ACETAMINOPHEN 325 MG TABLET PO PRN (09:48)
[2019-07-13 11:06] VITALS: BP 167/76
[2019-07-13] MEDS ORDERED: LOSA50TA86 PO (11:22)
[2019-07-13] MEDS ORDERED: WARF7.5T45 PO (11:22)
--- NOTE | 2019-07-13 11:29 | DS ---
DATE OF DISCHARGE: 07/13/2019 HOSPITAL COURSE: The patient is a 74-year-old female patient who underwent an elective right total hip arthroplasty at [facility] and was transferred to swing bed at [facility] to continue the process of rehabilitation, pain management and DVT prophylaxis. She did actually well. Unfortunately, on 07/10/2019, she became markedly hypotensive and so we did start her on IV fluid and also transferred her to acute care. We did actually CT angio of the chest that ruled out pulmonary emboli. She also has a CT scan of the pelvis, which showed no evidence of any hematoma on the right side and eventually she has ultrasound of her lower extremities which showed no evidence of deep vein thrombosis, transpired that she was on high dose of Coreg 25 mg twice a day that might be the reason why she became hypotensive as she normally at home at 3.125 mg twice a day and once we cut the Coreg, she remained hemodynamically stable, if anything, slightly hypertensive. Her INR continued to be subtherapeutic until eventually became therapeutic this morning and a decision was made to discharge her home to continue with outpatient physical and occupational therapy by her choice. PHYSICAL EXAMINATION: GENERAL: When I saw her this afternoon, she looked well and was clearly in no apparent respiratory distress, slightly pale, but no jaundice, cyanosis or thyromegaly. No jugular venous distention. No limb edema. VITAL SIGNS: Her heart rate this morning was 74, blood pressure was 167/76, temperature was 97.8, respiratory rate 20, and oxygen saturation 100% on 3 liters of oxygen. HEAD, EYES, EARS, NOSE AND THROAT: Showed normocephalic, atraumatic. NECK: Supple. HEART: Showed normal first and second heart sounds. No gallop, rub or murmur. CHEST: Clear to auscultation. No crepitation or rhonchi. ABDOMEN: Distended, soft, nontender. No guarding or rigidity. No organomegaly. All hernial orifice intact. Bowel sounds normal. NEUROLOGIC: She is awake, alert, responding appropriately. All cranial nerves intact. She moves extremities without difficulty. She ambulates with a walker. Her intake over the last 24 hours was 690, output was 300. LABORATORY DATA: As of yesterday, her hemoglobin was 7.9, hematocrit 26. Her chemistry showed a serum sodium of 145, potassium 4.1, chloride 107, bicarbonate 35, anion gap of 3, BUN 15, creatinine 0.7, estimated GFR was 82 mL per minute. Her glucose 132, calcium was 8.4. As of this morning, her prothrombin time was 28.2, INR of 2.7. DISCHARGE MEDICATIONS: She was discharged home to continue on all her other medications including albuterol inhaler 2 puffs every 4-6 hours, aspirin 81 mg once a day, carvedilol she normally takes 3.125 mg twice a day. She is on cyanocobalamin for vitamin B12 1000 mcg 1 tablet once a day, Clarinex 5 mg once a day, elderberry fruit and flower black elderberry 575 mg capsule 1 capsule daily, escitalopram oxalate 20 mg once a day, Advair Diskus 500/50 one inhalation twice a day, garlic 100 mg once a day, hydrocodone/APAP 5/325 one tablet every 6 hours, losartan potassium 25 mg once a day, omeprazole 40 mg once a day, pioglitazone 30 mg once a day, simvastatin 40 mg at bedtime, tiotropium bromide for Spiriva HandiHaler 1 inhalation once a day and warfarin that need to be 7 mg once a day. FINAL DISCHARGE DIAGNOSES: 1. Severe osteoarthritis of the right joint, status post right total hip arthroplasty. 2. Other medical problems include cerebrovascular accident. 3. Lung cancer, status post treatment with CyberKnife multiple times. 4. Bronchial asthma. 5. Chronic back pain. 6. Dysphagia. 7. Gastroesophageal reflux disease. 8. Hypertension. 9. Stress urinary incontinence. 10. Chronic sinusitis. 11. History of deep venous thrombosis. NOVA CULVER MD DR: HEMAL/martha JOB#: [id number] / [id number]
== END 2019-07-13 12:30 | disposition home or self-care (01) | DRG 312 ==
LOC: 1 SOUTH 18:21
PROVIDERS: ADMIT Internal Medicine; ATTEND Internal Medicine
DX: I95.2 Hypotension due to drugs (principal); T44.7X5A Adverse effect of beta-adrenoreceptor antagonists, initial encounter; M25.561 Pain in right knee; G89.29 Other chronic pain; I10 Essential (primary) hypertension; K21.9 Gastro-esophageal reflux disease without esophagitis; J32.9 Chronic sinusitis, unspecified; J45.909 Unspecified asthma, uncomplicated; K44.9 Diaphragmatic hernia without obstruction or gangrene; Z96.641 Presence of right artificial hip joint; N39.3 Stress incontinence (female) (male); R13.10 Dysphagia, unspecified; N28.9 Disorder of kidney and ureter, unspecified; M19.90 Unspecified osteoarthritis, unspecified site; Z79.84 Long term (current) use of oral hypoglycemic drugs; Z88.0 Allergy status to penicillin; Z86.718 Personal history of other venous thrombosis and embolism; Z79.01 Long term (current) use of anticoagulants; Z79.82 Long term (current) use of aspirin; Z79.899 Other long term (current) drug therapy; Z85.118 Personal history of other malignant neoplasm of bronchus and lung; Z86.73 Personal history of transient ischemic attack (TIA), and cerebral infarction without residual deficits; Z88.2 Allergy status to sulfonamides; Z88.8 Allergy status to other drugs, medicaments and biological substances
CPT/HCPCS: 36415; 71275; 72192; 80048; 80053; 82728; 82947; 83540; 83550; 84484; 85014; 85018; 85025; 85027; 85379; 85610; 93971; 94640; Q9967; 97110; 97116; 97530; 97535; J7030